=== PATIENT | male | born 1945 | race Two or more races ===

== ENCOUNTER 2017-06-20 07:53 | Day surgery (SDC) | payer OTHER ==
[~2017-06-20] VITALS: Ht 167.6 cm; Wt 70.1 kg
[2017-06-20 06:00] VITALS: PULSE 75
[2017-06-20] MEDS: NS 1000 ML IV SCH (08:45)
[2017-06-20] MEDS ORDERED: ceFAZolin 2 GM PREMIX 50 ML IV SCH (08:45)
[2017-06-20] MEDS ORDERED: CHLORHEXIDINE GLUCONATE 2 % 1 PACK (2 CLOTHS) TOPICAL SCH (08:45)
[2017-06-20] MEDS ORDERED: MUPIROCIN 2% OINT 1 APPLIC/GM SYR NASAL SCH (08:45)
[2017-06-20] MEDS ORDERED: LORazepam 1 MG TAB SL SCH (08:45)
[2017-06-20] MEDS ORDERED: POVIDONE IODINE 5% (ANTISEPSIS KIT) 4 APPLICATIONS EACH NARE SCH (08:45)
[2017-06-20] MEDS ORDERED: INSULIN HUMAN REGULAR 1,000 UNITS/10 ML VIAL SQ PRN (09:00)
[2017-06-20] MEDS ORDERED: SODIUM CHLORID 0.9% 500 ML IV PRN (09:00)
[2017-06-20] MEDS ORDERED: CHLORHEXIDINE GLUCONATE 2 % 1 PACK (2 CLOTHS) TOPICAL PRN (09:00)
[2017-06-20] MEDS ORDERED: METOPROLOL TARTRATE 25 MG TAB PO PRN (09:00)
[2017-06-20] MEDS ORDERED: POVIDONE IODINE 5% (ANTISEPSIS KIT) 4 APPLICATIONS EACH NARE PRN (09:00)
[2017-06-20] MEDS ORDERED: LACTATED RINGER'S 1000 ML IV PRN (09:00)
[2017-06-20 09:22] VITALS: BP 123/69; PULSE 56; RESP 18; TEMP 98; O2SAT 98
[2017-06-20 09:25] LABS: AUTOMATED NEUTROPHIL # 4.2 TH/MM3 (1.8-7.7); BASOPHIL % 0.6 % (0.0-2.0); EOSINOPHIL # 0.1 TH/MM3 (0-0.4); EOSINOPHIL % 1.8 % (0.0-4.0); HEMATOCRIT 39.1 % (39.0-51.0); HEMOGLOBIN 13.6 GM/DL (13.0-17.0); LYMPH % 13.6 % (9.0-44.0); LYMPHOCYTE # 0.8 TH/MM3 (1.0-4.8); MEAN CELL VOLUME 93.2 FL (80.0-100.0); MEAN CORPUSCULAR HEMOGLOBIN 32.4 PG (27.0-34.0); MEAN CORPUSCULAR HGB CONC 34.8 % (32.0-36.0); MEAN PLATELET VOLUME 7.1 FL (7.0-11.0); MONO % 9.2 % (0.0-8.0); MONOCYTE # 0.5 TH/MM3 (0-0.9); NEUT % 74.8 % (16.0-70.0); PLATELET COUNT 232 TH/MM3 (150-450); RED BLOOD COUNT 4.19 MIL/MM3 (4.50-5.90); RED CELL DISTRIBUTION WIDTH 16.1 % (11.6-17.2); WHITE BLOOD COUNT 5.7 TH/MM3 (4.0-11.0)
[2017-06-20] MEDS ORDERED: KLOR10TA6 PO (09:25)
[2017-06-20] MEDS ORDERED: METO50TA PO (09:25)
[2017-06-20] MEDS ORDERED: FURO40TA PO (09:25)
[2017-06-20] MEDS ORDERED: PLAV75TA29 PO (09:25)
[2017-06-20] MEDS ORDERED: AMIO200T PO (09:25)
[2017-06-20 09:33] LABS: INTERNATIONAL NORMALIZED RATIO 1.1 RATIO; PROTHROMBIN TIME - PATIENT 10.9 SEC (9.8-11.6)
[2017-06-20 09:39] LABS: BICARBONATE 31.3 MEQ/L (21.0-32.0); CALCIUM 8.7 MG/DL (8.5-10.1); CREATININE 1.33 MG/DL (0.60-1.30)
[2017-06-20] MEDS ORDERED: MIDAZOLAM HCL 2 MG/2 ML VIAL ONE (11:03)
[2017-06-20] MEDS ORDERED: PROPOFOL 200 MG/20 ML AMP IV ONE (12:00)
[2017-06-20] MEDS ORDERED: ePHEDrine/NS 25 MG/5 ML SYRINGE IV ONE (12:00)
[2017-06-20] MEDS ORDERED: LIDOCAINE HCL 1% PF 5 ML SYRINGE OTHER ONE (12:00)
[2017-06-20] MEDS ORDERED: PHENYLEPH/NS 1000 MCG/10 ML SYR IV ONE (12:00)
--- NOTE | 2017-06-20 12:06 | CATHPROC ---
Patient Name: MISAEL WYNNE Study #: [id number] Initial MD: José Luis Terrazas Date of : 1945 Study Date: 06/20/2017 Cardiac Catheterization Report 06/20/2017 12:05:56 PM Financial #: [id number] 1 of 6 Patient Name: MISAEL WYNNE Study #: [id number] Initial MD: José Luis Terrazas Date of : 1945 Study Date: 06/20/2017 Entire Case Report Patient Information Patient Name MISAEL WYNNE Date of 1945 Age 72 years Financial # [id number] Gender M AlternateID Lab Number 2 Room Number DC07 Height (in) 67.0 Height (cm) 170.2 BSA 1.81 Weight (lbs) 154.2 Weight (kg) 70.1 Patient Address/Phone Number Home Address [facility] Home Phone Number [phone] [facility] [address] Study Information Study Number Admission Scheduled Start Study Start [id number] Jun 20 2017 7:53AM 06/20/2017 Jun 20 2017 11:00AM [place] [facility] Electrophysiology Study Admit Source Facility Department Other [facility] - Polymer Specialist Physician and Clinical Staff Initial José Luis Quan Sample Box Maker Danni Avilez,HEAVY EQUIPMENT FIELD MECHANIC TECH2 Other Anesthesia, CODING ASSISTANT Recorder Sukhi Batista,RN Recorder Valerie Whittaker,HOLGER Scrub Cassandra Soria,RT(R) TECH2 Procedures Performed Procedure Ablation Procedure Cardioversion 06/20/2017 12:05:56 PM Financial #: [id number] 2 of 6 Patient Name: MISAEL WYNNE Study #: [id number] Initial MD: José Luis Terrazas Date of : 1945 Study Date: 06/20/2017 Equipment Time Concrete Floor Installer Description Size Mfg Part Number Used/Scraped [id number] 11:04 Net Transmit & Receive INDUSTRIES PACK, CCL CUSTOM * Used *[id number] 11:04 Net Transmit & Receive PACER BROWN, LIMB * 2530 *[id number] Used [id number] 11:04 [employer] BLANKET,WARM AIR CCL * Used *[id number] 104793 11:04 [employer] MEDICAL CATHETER, JSN, QUAD FR 5 Used *[id number] 663890 11:04 [employer] MEDICAL CATHETER, JSN, QUAD FR 5 Used *[id number] 267028 11:04 [employer] MEDICAL CATHETER, JSN, QUAD FR 5 Used *[id number] 830239 11:04 [employer] MEDICAL CATHETER, JSN, QUAD FR 5 Used *[id number] 141596 11:04 [employer] MEDICAL SHEATH, EPS, FR5 FAST CATH FR 5 Used *[id number] 648460 11:04 [employer] MEDICAL SHEATH, EPS, FR5 FAST CATH FR 5 Used *[id number] 543282 11:04 [employer] MEDICAL SHEATH, EPS, FR5 FAST CATH FR 5 Used *[id number] 263884 11:04 [employer] MEDICAL SHEATH, EPS, FR6 FAST CATH FR 6 Used *[id number] Insurance Information Insurance Payor Private Health Insurance Third Green Party Third Green Party Number [facility] History: Allergies Allergy Reaction No Known Allergies History: Risk Factors Hypertension Dyslipidemia Previous Heart Failure Yes Yes Yes Prior CABG Yes Cerebrovascular Disease Yes Labs Hgb (g/dl) Hct (%) RBC (MIL/MM3) WBC (l/cumm) Platelets (thousands) 11.60-17.00 35.00-51.00 4.00-5.90 4.00-11.00 150.00-450.00 13.0 39 4.2 5.7 232 06/20/2017 12:05:56 PM Financial #: [id number] 3 of 6 Patient Name: MISAEL WYNNE Study #: [id number] Initial MD: José Luis Terrazas Date of : 1945 Study Date: 06/20/2017 Glucose (mg/dl) BUN (mg/dl) Creatinine (mg/dl) BUN:Creatinine (1:x) 74.00-106.00 7.00-18.00 0.50-1.30 10.00-20.00 110 12 1.3 9.2 Na (meq/l) K (meq/l) 136.00-145.00 3.50-5.10 130 4.4 INR (PTT:PT) 0.90-1.10 1.1 Medication Medication Total Dose (Bolus/Oral) Medication Total Dosage/Unit 1% XYLOCAINE 20 mL Medications (Bolus/Oral) Medication Time Given Dosage/Unit Administered By Reason 1% XYLOCAINE 06/20/2017 11:52:26 AM 20 mL Nini José Luis 20 mL 1% XYLOCAINE given in lab by José Luis Terrazas in Right Groin via Subcutaneous. Chronological Log Time Study Chronological Log 11:37:07 Patient arrived via Bed. 11:37:09 Patient Name, D.O.B, / Armband Verified By R.N. 11:37:16 Consent signed by the physician and the patient and verified by the Polymer Specialist staff. 11:37:21 Anesthesia at bedside. Assumes care of patient. See flow sheet for meds and vitals. Immanuel 11:37:48 Patient has been NPO for More than 6Hrs. 11:37:51 Skin Breakdown-none per patient 11:38:00 Patient Warmer Placed on the Table. 11:38:03 Disposable Defibrillator Pads Placed On Patient. 11:38:06 Jamison Prominences Protected 11:38:12 A # 20 IV was noted in the Antecubital (left). Grade = 0 0.9ns kvo 11:38:24 A # 20 IV was noted in the Antecubital (right). Grade = 0 0.9ns kvo 11:38:32 History and physical on the chart or being dictated. 11:38:40 Table restraints applied according to hospital policy 06/20/2017 12:05:56 PM Financial #: [id number] 4 of 6 Patient Name: MISAEL WYNNE Study #: [id number] Initial MD: José Luis Terrazas Date of : 1945 Study Date: 06/20/2017 11:38:52 Bilateral groins prepped with 2% chlorhexidine, and draped after a 3 minute waiting time. 11:42:35 MD arrived. 11:48:18 Reference ECG taken Time Out. Correct patient, procedure, procedure equipment, site and side verified with physici an present. Time 11:52:00 concurred by MD, individual staff and CODING ASSISTANT. Time Out #2 - Consents verified, patient in correct position, all results are labled and displ ayed, safety precautions 11:52:12 taken, antibiotics administered. Time out concurred by MD, individual staff and CODING ASSISTANT in proced ure 11:52:24 Case Start 11:52:26 20 mL 1% XYLOCAINE given in lab by José Luis Terrazas in Right Groin via Subcutaneous. 11:52:39 Vascular access was obtained in the Fem Vein (right). 11:52:45 Vascular access was obtained in the Fem Vein (right). 11:52:53 Vascular access was obtained in the Fem Vein (right). 11:52:59 Vascular access was obtained in the Fem Vein (right). 11:53:08 A SHEATH, EPS, FR5 FAST CATH FR 5 was advanced into the Fem Vein (right) using the Modifie d Seldinger technique. 11:53:17 A SHEATH, EPS, FR5 FAST CATH FR 5 was advanced into the Fem Vein (right) using the Modifie d Seldinger technique. 11:53:25 A SHEATH, EPS, FR5 FAST CATH FR 5 was advanced into the Fem Vein (right) using the Modifie d Seldinger technique. 11:53:29 A SHEATH, EPS, FR6 FAST CATH FR 6 was advanced into the Fem Vein (right) using the Modifie d Seldinger technique. A CATHETER, JSN, QUAD FR 5 was advanced vis Fem Vein (right) and placed in the CS. Placement w as visually 11:54:51 confirmed under fluoroscopy. A CATHETER, JSN, QUAD FR 5 was advanced vis Fem Vein (right) and placed in the HIS. Placement was visually 11:55:23 confirmed under fluoroscopy. A CATHETER, JSN, QUAD FR 5 was advanced vis Fem Vein (right) and placed in the RVA. Placement was visually 11:55:37 confirmed under fluoroscopy. A CATHETER, JSN, QUAD FR 5 was advanced vis Fem Vein (right) and placed in the HRA. Placement was visually 11:55:46 confirmed under fluoroscopy. 11:58:06 EPS in progress. 12:03:25 ECG rhythm of VT noted. Patient cardioverted at 200 joules. Success 12:04:34 Ablation procedure performed: ~ABLATION TYPE~. none 12:04:42 EP Procedure was performed. eps 12:05:09 NOTE: This patient is undergoing an additional procedure while still in the Cardiac Cath L ab. End Study - Contrast Media Used In Study Contrast Total Opened (mL) Total Used (mL) Total Wasted (mL) Unspecified 0 0 0 End Study - Maximum Contrast Load Max Contrast Load (mL) 269.6 06/20/2017 12:05:56 PM Financial #: [id number] 5 of 6 Patient Name: MISAEL WYNNE Study #: [id number] Initial MD: José Luis Terrazas Date of : 1945 Study Date: 06/20/2017 End Study - Radiation Exposure Fluoro Time (minutes) 0.7 End Study - Patient Disposition Complications Transferred To Interventional Outcome No Polymer Specialist Holding successful 06/20/2017 12:05:56 PM Financial #: [id number]
[2017-06-20] MEDS ORDERED: VANCOMYCIN 500 MG VIAL ONE (12:13)
[2017-06-20] MEDS ORDERED: LIDOCAINE HCL 2% 50 ML VIAL ONE (12:13)
[2017-06-20] MEDS ORDERED: LIDOCAINE HCL 1% 50 ML VIAL INFIL PRN (13:15)
[2017-06-20] MEDS ORDERED: SODIUM CHLOR 0.9% 250 ML INJ 250 ML IV PRN (13:15)
[2017-06-20] MEDS ORDERED: SODIUM CHLORIDE 0.9% FLUSH 10 ML FLUSH IV FLUSH PRN (13:15)
[2017-06-20] MEDS ORDERED: ONDANSETRON HCL 4 MG/2 ML VIAL IV PUSH PRN (13:15)
[2017-06-20] MEDS ORDERED: LORazepam 2 MG/ML VIAL IV PUSH PRN (13:15)
[2017-06-20] MEDS ORDERED: ATROPINE SULFATE 1 MG/ML VIAL IV PUSH PRN (13:15)
[2017-06-20] MEDS ORDERED: oxyCODONE/ACETAMINOPHEN 5 MG/325 MG TAB PO PRN (13:15)
--- NOTE | 2017-06-20 13:55 | CATHPROC ---
Patient Name: MISAEL WYNNE Study #: [id number] Initial MD: José Luis Terrazas Date of : 1945 Study Date: 06/20/2017 Cardiac Catheterization Report 06/20/2017 2:19:26 PM Financial #: [id number] 1 of 7 Patient Name: MISAEL WYNNE Study #: [id number] Initial MD: José Luis Terrazas Date of : 1945 Study Date: 06/20/2017 Entire Case Report Patient Information Patient Name MISAEL WYNNE Date of 1945 Age 72 years Financial # [id number] Gender M AlternateID Lab Number 2 Room Number DC07 Height (in) 67.0 Height (cm) 170.2 BSA 1.81 Weight (lbs) 154.2 Weight (kg) 70.1 Patient Address/Phone Number Home Address [facility] Home Phone Number [phone] [facility] [address] Study Information Study Number Admission Scheduled Start Study Start [id number] Jun 20 2017 7:53AM 06/20/2017 Jun 20 2017 12:06PM [place] [facility] Cardiac Pacer/ICD Admit Source Facility Department Other [facility] - Glass Driller Physician and Clinical Staff Initial José Luis Quan Manufacturing Design Engineer Cassandra Soria,RT(R) TECH2 Other Anesthesia, REMOTELY OPERATED VEHICLE Recorder Valerie Whittaker,HOLGER Scrub Danni Avilez,PREFORMING MACHINE OPERATOR TECH2 Procedures Performed Procedure Location (Site) Vessel Name Lead Insertion Venogram Coronary Sinus Other Venogram Subclav. Vein (Lft Subclavian Vein Wire insertion Subclav. Vein (Lft Subclavian Vein 06/20/2017 2:19:26 PM Financial #: [id number] 2 of 7 Patient Name: MISAEL WYNNE Study #: [id number] Initial MD: José Luis Terrazas Date of : 1945 Study Date: 06/20/2017 Equipment Time Pet Counselor Description Size Mfg Part Number Used/Scraped [id number] 12:54 [employer] WIRE, ASAHI PROWATER 180CM 180CM Used *[id number] 13:12 BIOTRONIK DEFIBRILLATOR, ILIVIA 7 HF-T QP [id number] Used 12:37 BIOTRONIK LEAD, PLEXA PRO-MRI SD 65 [id number] Used 12:44 BIOTRONIK LEAD, SOLIA 60 53 PRO MRI * [id number] Used 13:16 MERIT MEDICAL PACER SAFE SHEATH, FR7, 13CM FR 7 CLS-1007 Used 12:40 MER[employer] MEDICAL PACER SAFE SHEATH, FR8, 13CM FR 8 CLS-1008 Used 13:17 MERIT MEDICAL PACER SAFE SHEATH, FR9, 13CM FR 9 CLS-1009 Used 12:23 Needle Sponge Count 2 22 Used 12:23 Needle Sponge Count 20 200 Used 12:23 Needle Sponge Count 6 6 Used 12:35 NYCOMED OMNIPAQUE, 300 MG, 50ML 50ML [id number] Used [id number] 13:00 [employer] MEDICAL LIVEWIRE, QUAD, MED SWEEP FR 6 Used *[id number] LEAD, ATTAIN PERFORMA 13:01 VITATRON MEDTRONIC 88CM 4398-88CM Used STRAIGHT, 88CM Equipment Model, Serial, Lot Number and Expiration Data Description Model Number Serial Number Lot Number Expiration Date DEFIBRILLATOR, ILIVIA 7 HF-T QP [id number] 10-13-2018 LEAD, ATTAIN PERFORMA 4398 [id number] 05-12-2019 STRAIGHT, 88CM LEAD, PLEXA PRO-MRI SD [id number] 02-12-2019 LEAD, SOLIA 60 53 PRO MRI [id number] 02-12-2019 Insurance Information Insurance Payor Private Health Insurance Third Republican Third Republican Number [facility] History: Allergies Allergy Reaction No Known Allergies Medication 06/20/2017 2:19:26 PM Financial #: [id number] 3 of 7 Patient Name: MISAEL WYNNE Study #: [id number] Initial MD: José Luis Terrazas Date of : 1945 Study Date: 8 Medication Total Dose (Bolus/Oral) Medication Total Dosage/Unit 2% XYLOCAINE 50 mL Medications (Bolus/Oral) Medication Time Given Dosage/Unit Administered By Reason 2% XYLOCAINE 06/20/2017 12:28:15 PM 50 mL José Luis Terrazas 50 mL 2% XYLOCAINE given in lab by José Luis Terrazas in Left shoulder via Subcutaneous. Medication (Drip) Medication Time Given Dosage/Unit Concentration/Unit Diluent (ml) Solution ANCEF 06/20/2017 12:05:44 PM 1 g 1 g ANCEF given in lab by Anesthesia, REMOTELY OPERATED VEHICLE via Peripheral IV. Ordered by Hanscy. Nini Reason: As pe r physicians verbal order. VANCOMYCIN DRIP 06/20/2017 12:05:07 PM 1 g 1 g VANCOMYCIN DRIP given in lab by Anesthesia, REMOTELY OPERATED VEHICLE via Peripheral IV. Ordered by José Luis Terrazas. Selena son: As per physicians verbal order. 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/59 0 Edema Present Skin color Skin None Normal Warm Dry Circulatory - Right Pulses Radial 3 Scale (0,1,2,3,4,d) Circulatory - Left Pulses Radial 3 Scale (0,1,2,3,4,d) Circulatory - Lower Extremities Color Lower Right Color Lower Left Normal Normal Neurological State Oriented to time-place- Alert Moves all extremities person Respiration - General Respiration Rate SpO2 (%) O2 (lpm) (B/min) 16 100 4 06/20/2017 2:19:26 PM Financial #: [id number] 4 of 7 Patient Name: MISAEL WYNNE Study #: [id number] Initial MD: José Luis Terrazas Date of : 1945 Study Date: 06/20/2017 Chronological Log Time Study Chronological Log 12:04:45 Catheter(s), except CS, were removed without difficulty. 12:05:00 NOTE: This patient is undergoing an additional procedure while still in the Cardiac Cath La b. 12:05:00 Anesthesia remains at bedside. Assuming care of patient. 1 g VANCOMYCIN DRIP given in lab by Anesthesia, REMOTELY OPERATED VEHICLE via Peripheral IV. Ordered by Yeny Terrazas Reason: As per 12:05:07 physicians verbal order. 12:05:30 2% CHLORHEXIDINE GLUCONATE WASH AND NASAL SWIPE DONE PRIOR TO PROCEDURE. 1 g ANCEF given in lab by Anesthesia, REMOTELY OPERATED VEHICLE via Peripheral IV. Ordered by Hanscy. Nini Reason: As per physicians 12:05:44 verbal order. 12:08:02 Bovie ground pad applied to: right thigh 12:11:30 Fitzpatrick sci rep present 12:11:44 Reference ECG taken 12:11:51 2% CHLORHEXIDINE GLUCONATE WASH AND NASAL SWIPE DONE PRIOR TO PROCEDURE. 12:13:49 Upper Chest Prepped Times Two w 3 min wait time prior to draping. First Sponge And Instrument Count Done by Cassandra Soria, RT(R) TECH2. 12:22:45 Hypo's: 6, Sponges: 20, Bovie/scratch: 2 Sutures: 11, Blades: 1, Instruments: 26, Syveck Patches: 0 Time Out. Correct patient, procedure, procedure equipment, site and side verified with physicia n present. Time 12:27:00 concurred by MD, individual staff and REMOTELY OPERATED VEHICLE. Time Out #2 - Consents verified, patient in correct position, all results are labled and displa yed, safety precautions 12:27:20 taken, antibiotics administered. Time out concurred by MD, individual staff and REMOTELY OPERATED VEHICLE in procedu re 12:27:42 Case Start 12:28:15 50 mL 2% XYLOCAINE given in lab by José Luis Terrazas in Left shoulder via Subcutaneous. 12:31:00 Vascular access was obtained in the Subclav. Vein (Lft. 12:34:47 The Subclav. Vein (Lft was manually injected with 20 cc's of contrast. OMNIPAQUE, 300 MG, 5 0ML 50ML used. 12:35:38 Vascular access was obtained in the Subclav. Vein (Lft. 12:35:40 Wire inserted 12:36:04 Vascular access was obtained in the Subclav. Vein (Lft. 12:36:06 Wire inserted 12:37:04 Surgical Incision Made. 12:38:06 A pocket was created at the L Upper Chest. 12:39:34 A SAFE SHEATH, FR8, 13CM FR 8 was advanced into the Subclav. Vein (Lft using the Modified S eldinger technique. 12:40:46 A LEAD, PLEXA PRO-MRI SD 65/18 65 was inserted and positioned in the RV. 12:40:53 Lead placement verified under fluoroscopy 12:41:46 The RV lead impedance and threshold being tested. 12:42:00 The RV lead was sutured to the fascia. 12:43:54 A SAFE SHEATH, FR7, 13CM FR 7 was advanced into the Subclav. Vein (Lft using the Modified S eldinger technique. 12:44:01 A LEAD, SOLIA 60 53 PRO MRI * was inserted and positioned in the RA. 06/20/2017 2:19:26 PM Financial #: [id number] 5 of 7 Patient Name: MISAEL WYNNE Study #: [id number] Initial MD: José Luis Terrazas Date of : 1945 Study Date: 06/20/2017 12:44:19 Lead placement verified under fluoroscopy 12:45:22 The Atrial lead impedance and threshold is being tested. 12:46:00 The Atrial lead was sutured to the fascia. 12:50:53 Vascular access was obtained in the Subclav. Vein (Lft. 12:51:10 A SAFE SHEATH, FR9, 13CM FR 9 was advanced into the Subclav. Vein (Lft using the Modified S eldinger technique. 12:54:06 The Coronary Sinus was manually injected with 10 cc's of contrast. OMNIPAQUE, 300 MG, 50ML 50ML used. A LIVEWIRE, QUAD, MED SWEEP FR 6 was advanced vis Subclav. Vein (Lft and placed in the CS. Plac ement was 12:56:19 visually confirmed under fluoroscopy. 12:56:21 The Coronary Sinus was manually injected with 10 cc's of contrast. OMNIPAQUE, 300 MG, 50ML 50ML used. 12:57:39 A WIRE, ASAHI PROWATER 180CM 180CM was inserted via Subclav. Vein (Lft. 13:01:08 A LEAD, ATTAIN PERFORMA STRAIGHT, 88CM 88CM was inserted and positioned in the CS/LV. 13:01:36 Wire removed 13:02:13 The CS/LV lead impedance and threshold is being tested. 13:03:19 The CS/LV lead was sutured to the fascia. 13:09:37 Pocket flushed with antibiotic solution 13:11:57 A DEFIBRILLATOR, ILIVIA 7 HF-T QP was connected and placed in the pocket. Second Sponge And Instrument Count Done by Cassandra Soria, RT(R) TECH2. 13:13:22 Hypo's: 6, Sponges: 20, Bovie/scratch: 2 Sutures: 11, Blades: 1, Instruments:, Syveck Patches: 13:22:30 The pocket was closed. 13:27:40 DOCU called. Spoke to Denise 13:27:53 Bedside Report will be given. Final Sponge And Instrument Count Done by Cassandra Soria, RT(R) TECH2. 13:28:20 Hypo's: 6, Sponges: 20, Bovie/scratch: 2 Sutures: 11, Blades: 1, Instruments: 26, Syveck Patches: 0 13:30:43 Case End 13:31:30 Steri-strips and a sterile dressing applied to site. Site wnl. 13:31:32 Implant Procedure was performed. 13:31:40 A Bivent ICD Implant . (Dual) 13:34:51 Implantable Device card placed in patient's chart. 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 13:45:33 A sling was placed on the affected arm. 13:50:41 Sterile dressing applied to right groin site. Site wnl. 13:52:00 Patient moved to stretcher 13:52:54 Defibrillator and ground pads removed. Skin intact. 06/20/2017 2:19:26 PM Financial #: [id number] 6 of 7 Patient Name: MISAEL WYNNE Study #: [id number] Initial MD: Jsoé Luis Terrazas Date of : 1945 Study Date: 06/20/2017 End Study - Contrast Media Used In Study Contrast Total Opened (mL) Total Used (mL) Total Wasted (mL) Omnipaque 50 30 20 End Study - Radiation Exposure Fluoro Time (minutes) 8.7 End Study - Patient Disposition Complications Transferred To Interventional Outcome No Telemetry Bed successful 06/20/2017 2:19:26 PM Financial #: [id number] 7 of 7
[2017-06-20] MEDS: ceFAZolin 2 GM PREMIX 50 ML IV SCH ×2 (14:00→21:26)
[2017-06-20] MEDS ORDERED: BACITRACIN OINT 0.9 GM PKT TOP ONE (14:00)
--- NOTE | 2017-06-20 15:28 | RADRPT ---
EXAM DATE/TIME: 06/20/2017 15:04 [place] COMPARISON: No previous studies available for comparison. INDICATIONS : Post icd placement MEDICAL HISTORY : Hypertension. Congestive heart failure. SURGICAL HISTORY : CABG. ENCOUNTER: Initial ACUITY: 1 day PAIN SCORE: 0/10 LOCATION: Bilateral chest FINDINGS: ICD on the left Cardiomegaly previous bypass atrial clip noted. Negative for failure or pneumothor ax. ICONCLUSION: Negative for pneumothorax. Fausto Cruz MD FACR on June 20, 2017 at 15:24 Board Certified Radiologist. This report was verified electronically.
[2017-06-20 17:57] VITALS: BP 130/63; PULSE 66; RESP 20; TEMP 98.8; O2SAT 99
[2017-06-20] MEDS: oxyCODONE/ACETAMINOPHEN 5 MG/325 MG TAB PO PRN ×2 (18:09→22:20)
[2017-06-20] MEDS ORDERED: DO NOT ADM ANY ANTICOAGULANT DRUGS PRN (19:00)
[2017-06-20 19:53] VITALS: BP 168/76; PULSE 68; RESP 17; TEMP 97.7; O2SAT 100
[2017-06-20] MEDS: SODIUM CHLORIDE 0.9% FLUSH 10 ML FLUSH IV FLUSH SCH (21:00)
[2017-06-20] MEDS: METOPROLOL TARTRATE 50 MG TAB PO SCH (21:26)
--- NOTE | 2017-06-20 21:56 | EKG ---
Date Performed: 06/20/2017 Time Performed: 09:25:42 PTAGE: 72 years EKG: Sinus bradycardia. Leftward axis Left bundle branch block Abnormal ECG NO PREVIOUS TRACING DOCTOR: José Luis Terrazas Interpretating Date/Time 06/20/2017 21:54:41
[2017-06-20 22:22] VITALS: BP 138/70; PULSE 60; RESP 16; TEMP 97.8; O2SAT 98
[2017-06-20 23:00] VITALS: PULSE 60; PULSE 64
[2017-06-21] VITALS (14 sets, daily range): BP systolic 135–159; BP diastolic 81–88; PULSE 59–77; RESP 16–20; TEMP 97.8–98.1; O2SAT 99
[2017-06-21] MEDS: ceFAZolin 2 GM PREMIX 50 ML IV SCH (05:05)
[2017-06-21] MEDS: METOPROLOL TARTRATE 50 MG TAB PO SCH (08:44)
[2017-06-21] MEDS: SODIUM CHLORIDE 0.9% FLUSH 10 ML FLUSH IV FLUSH SCH (08:44)
[2017-06-21] MEDS: oxyCODONE/ACETAMINOPHEN 5 MG/325 MG TAB PO PRN (08:44)
[2017-06-21] MEDS: NS 1000 ML IV SCH (08:45)
[2017-06-21] MEDS ORDERED: AMIODARONE 200 MG TAB PO SCH (09:00)
[2017-06-21] MEDS ORDERED: CLOPIDOGREL 75 MG TAB PO SCH (09:00)
[2017-06-21] MEDS ORDERED: FUROSEMIDE 40 MG TAB PO SCH (09:00)
[2017-06-21] MEDS ORDERED: POTASSIUM CHLORIDE 10 MEQ CONTROLLED RELEASE TAB PO SCH (09:00)
--- NOTE | 2017-06-21 14:10 | PD.CARD ---
BIV/ICD Implantation PROCEDURE DATE: Jun 20, 2017 NYHA Classification: Class III (Moderate) Prevention: Secondary BIV/ICD IMPLANT PROCEDURE Biventricular pacer defibrillator implantation. INDICATION FOR PROCEDURE Mr. Orta is a 72-year-old Other male with congestive heart failure, ischemic cardiomyopathy, QRS 160ms who undergo biventricular pacer defibrillator implantation. Post electrophysiology study the patient was kept on the table for device implantation. The risks, the nature and the benefit of the procedure were clearly stated to him. The risks include pneumothorax, cardiac perforation, stroke and even . He understood and agreed to proceed. PROCEDURE As written informed consent was obtained prior to electrophysiology study, the patient was kept on the table where he was prepped and draped in the usual sterile fashion. Conscious sedation was initiated and maintained throughout the procedure by the anesthesiologist. Once sedation was verified, the left infraclavicular area was anesthetized with 2% Xylocaine. Using modified Seldinger technique, the left subclavian vein was cannulated on three occasions and three guidewire were advanced. Then, using an 11 blade scalpel, a 3 cm incision was made over the existing generator. The incision was taken down to the fascial layer using Bovie cautery and blunt dissection. Into the inferomedial direction, a device pocket was dissected. Then the wires were dissected into pocket. A 2-0 Vicryl suture was placed around the wires to prevent back-bleeding. At this point, over the lateral wire, an 8-Qatari dilator and introducer were advanced. As the dilator and wire were removed, an active fixation right ventricular pacing sensing defibrillatory lead was advanced. After adequate pacing and sensing thresholds were obtained, the lead was secured in the pocket using # 2 Ethibond suture. Then, over the lateral wire, a 7-Qatari dilator and introducer was advanced. As the dilator and wire were removed, an active fixation right atrial pacing and sensing lead was advanced. After adequate pacing and sensing thresholds obtained, the lead was secured into the pocket using a # 2 Ethibond suture. Then, over the remaining wire, a 9-Qatari dilator and introducer were advanced. As the dilator and wire were removed, a CS cannulation sheath was advanced. Through the sheath a quadripolar steerable catheter was advanced. After multiple manipulations the coronary sinus was cannulated, and CS venography showed an adequate lateral branch. Using a P[place]ater wire the lateral branch was cannulated and the lead was advanced over the wire. After adequate pacing and sensing thresholds were obtained, the peel-away introducer was removed and the cutter introducer was removed, and the lead was secured in the pocket using # 2 Ethibond suture. At that point, the pocket was copiously irrigated with antibiotic solution. The leads were connected to the generator and placed into pocket. Because of the patient's general condition and was so unstable during the procedure, I decided not to proceed with device testing. I did proceed with wound closure. The deep fascial layer was approximated using 2-0 Vicryl suture in a continuous fashion. The subcutaneous layer was approximated with 2-0 Vicryl suture in a continuous fashion. The subcuticular layer was approximated with 2-0 Vicryl suture in a continuous fashion. Dermabond adhesive was applied to the wound followed by a sterile pressure dressing. This was a very complex case. The patient was unstable during the procedure, but no complications reported. Blood loss was minimal. IMPLANTED HARDWARE The implanted biventricular pacer defibrillator is a Biotronik model 798531, serial number [id number]. The right atrial pacing and sensing lead is a Biotronik model number 324954, serial number [id number]. The right ventricle pacing sensing defibrillatory is a Biotronik model 068531, serial number [id number]. The left ventricular pacing sensing lead is a Medtronic model 4398-88, serial number [id number]. THRESHOLDS The right atrial pacing threshold in a bipolar mode was 1.0 V @ 0.5 ms. Lead impedance 565. P wave @ 4.6mV. ohms. The right ventricle pacing threshold in the bipolar mode was 0.8 volts at 0.4 milliseconds, lead impedance 10.2 ohms, and shocking impedance 811 ohms. The left ventricular pacing threshold in the bipolar mode was 1.9 volts at 1.0 milliseconds, lead impedance 640 ohms. SETTINGS The device was set in a DDD 60, upper limit 120 beats per minute. LV first by 40 milliseconds. The defibrillatory portion was set for two zones. One zone for ventricular tachycardia between 160 and 240 beats per minute on the monitor ventricular tachycardia. The initial therapy consisted of one burst of ATP, one RAMP, 81%, 10 pulses, 10 millisecond decremental followed by 20. 30 and 40 joules defibrillatory shock. The second zone is for ventricle fibrillation above 240, the first therapy at 30 and all subsequent shocks at 40 joules defibrillatory shock. CONCLUSIONS Successful biventricular pacer defibrillator implantation, that was a complex case. COMMENT AND RECOMMENDATION The patient will be transferred to the telemetry unit. He will be observed and when stable can be discharged home. José Luis Terrazas MD Jun 21, 2017 14:10
--- NOTE | 2017-06-21 14:18 | HHI.PR ---
Subjective Remarks Feeling better Objective Vital Signs Date Time Temp Pulse Resp B/P (MAP) Pulse Ox O2 Delivery O2 Flow Rate FiO2 06/21/17 13:00 60 06/21/17 12:00 60 06/21/17 11:00 97.9 61 20 152/81 (104) 99 06/21/17 11:00 60 06/21/17 10:00 60 06/21/17 09:00 59 06/21/17 08:00 60 06/21/17 07:00 98.1 59 20 159/88 (111) 99 06/21/17 07:00 60 06/21/17 06:00 68 06/21/17 05:02 60 06/21/17 04:43 16 06/21/17 04:18 97.8 60 16 135/83 (100) 99 06/21/17 04:00 59 06/21/17 03:00 77 06/21/17 02:14 60 06/20/17 23:22 17 06/20/17 23:00 64 06/20/17 23:00 60 06/20/17 22:22 97.8 60 16 138/70 (92) 98 06/20/17 19:53 97.7 68 17 168/76 (106) 100 06/20/17 17:57 98.8 66 20 130/63 (85) 99 06/20/17 14:17 95 Room Air I/O 06/20/17 06/20/17 06/20/17 06/21/17 06/21/17 06/21/17 07:00 15:00 23:00 07:00 15:00 23:00 Intake Total 0 ml 480 ml Output Total 450 ml Balance 0 ml 30 ml Intake Oral 0 ml 480 ml Output Urine Total 450 ml # Voids 3 # Bowel Movements 0 Result Diagram: 06/20/17 0850 06/20/17 0850 Imaging Alert, fully oriented Lungs: ventilated Heart: s1, s2 regular, no gallop Abdomen: soft, no mass Ext: no edema Clean surgical wound Last Impressions Chest X-Ray 06/20/17 0000 Signed Impressions: Service Date/Time: Tuesday, June 20, 2017 15:04 - CONCLUSION: Negative for pneumothorax. Fausto Curz MD FACR Current Medications Medications (Trade) Dose Ordered Sig/Kaur Route Start Time Stop Time Status Last Admin Sodium Chloride 1,000 ml @ 30 mls/hr Q24H IV 06/20/17 08:45 Cefazolin Sodium/ Dextrose 50 ml @ 100 mls/hr PATTERN DRUM MAKER IV 06/20/17 08:45 06/23/17 08:44 (Ativan) 1 mg PATTERN DRUM MAKER SL 06/20/17 08:45 06/23/17 08:44 (Betadine 5% Antisepsis Kit) 2 applic PATTERN DRUM MAKER EACH NARE 06/20/17 08:45 06/23/17 08:44 (Bactroban Nasal 2% Oint) 1 applic PATTERN DRUM MAKER NASAL 06/20/17 08:45 06/23/17 08:44 (Chlorhexidine 2% Cloth) 3 pack PATTERN DRUM MAKER TOPICAL 06/20/17 08:45 06/23/17 08:44 Lactated Ringer's 1,000 ml @ 30 mls/hr Q24H PRN IV 06/20/17 09:00 06/23/17 08:59 Sodium Chloride 500 ml @ 30 mls/hr [id number] PRN IV 06/20/17 09:00 06/23/17 08:59 (Lopressor) 25 mg PATTERN DRUM MAKER PRN PO 06/20/17 09:00 06/23/17 08:59 (Betadine 5% Antisepsis Kit) 1 applic PATTERN DRUM MAKER PRN EACH NARE 06/20/17 09:00 06/23/17 08:59 (Chlorhexidine 2% Cloth) 3 pack PATTERN DRUM MAKER PRN TOPICAL 06/20/17 09:00 06/23/17 08:59 (NovoLIN R INJ) See Protocol Table ... PATTERN DRUM MAKER PRN SQ 06/20/17 09:00 06/23/17 08:59 (Percocet 5-325 Mg) 1 tab Q4H PRN PO 06/20/17 13:15 06/21/17 03:44 (Percocet 5-325 Mg) 2 tab Q4H PRN PO 06/20/17 13:15 06/21/17 08:44 (Atropine Inj) 0.5 mg UNSCH PRN IV PUSH 06/20/17 13:15 (Zofran Inj) 4 mg Q4H PRN IV PUSH 06/20/17 13:15 (NS Flush) 2 ml BID IV FLUSH 06/20/17 21:00 06/21/17 08:44 (NS Flush) 2 ml UNSCH PRN IV FLUSH 06/20/17 13:15 (Cordarone) 200 mg DAILY PO 06/21/17 09:00 06/21/17 08:44 (Plavix) 75 mg DAILY PO 06/21/17 09:00 06/21/17 08:43 (Lasix) 40 mg DAILY PO 06/21/17 09:00 06/21/17 08:43 (Lopressor) 50 mg BID PO 06/20/17 21:00 06/21/17 08:44 (KCl) 10 meq DAILY PO 06/21/17 09:00 06/21/17 08:44 Miscellaneous Information ALL NURSING DEPARTME... UNSCH PRN .XX 06/20/17 19:00 06/21/17 18:59 Assessment and Plan Problem List: (1) Biventricular automatic implantable cardioverter defibrillator in situ ICD Codes: Z95.810 - Presence of automatic (implantable) cardiac defibrillator Plan: Clean surgical wound Device well functioning (2) CHF (congestive heart failure) ICD Codes: I50.9 - Heart failure, unspecified Plan: Doing better Creat decrease Entresto will be added Will be uptitrated as OP José Luis Terrazas MD Jun 21, 2017 14:18
[2017-06-21] MEDS ORDERED: HYDR-3288 PO (14:22)
[2017-06-21] MEDS ORDERED: SACU1TAB PO (14:22)
[2017-06-21] MEDS ORDERED: CEPH-460 PO (14:22)
--- NOTE | 2017-06-21 14:43 | EKG ---
Date Performed: 06/21/2017 Time Performed: 08:01:20 PTAGE: 72 years EKG: A-V sequential pacemaker Pacemaker rhythm - no further analysis Compared to previous [place] the patient continues in a paced rhythm, possibly unipolar Abnormal ECG PREVIOUS TRACING : 06/21/2017 04.05 DOCTOR: Nestor Cordero Interpretating Date/Time 06/21/2017 14:35:58
--- NOTE | 2017-06-21 14:43 | EKG ---
Date Performed: 06/21/2017 Time Performed: 04:05:52 PTAGE: 72 years EKG: A-V sequential pacemaker Pacemaker rhythm - no further analysis Compared to previous [place] the patient is now in a paced rhythm Abnormal ECG PREVIOUS TRACING : 06/20/2017 09.25 DOCTOR: Nestor Cordero Interpretating Date/Time 06/21/2017 14:35:03
--- NOTE | 2017-06-21 16:08 | MA ---
cc: CAMRYN BRO M.D. DATE 06/20/2017 PROCEDURE 1. Electrophysiology study. 2. Biventricular pacer defibrillator insertion. INDICATION FOR PROCEDURE Mr. Richard Lopez is a 72-year-old gentleman with congestive heart failure, coronary artery disease, cardiomyopathy, ejection fraction around 30%, referred for electrophysiology study and biventricular pacer defibrillator insertion. The risks, the nature and the benefit of the procedure were clearly stated to him. The risks include pneumothorax, cardiac perforation, stroke, need for open heart surgery and even . The patient understood and agreed to proceed. DETAILS OF PROCEDURE After written informed consent was obtained, the patient was brought to the EP lab where he was prepped and draped in the usual sterile fashion. Conscious sedation was initiated and maintained throughout the procedure by the anesthesiologist. Once sedation was verified, the right inguinal area was anesthetized with 2% Xylocaine. Using the modified Seldinger technique, the right femoral vein was cannulated on four occasion and four guidewires were advanced. Over the wires three 5 and a 6 Trin[place] were advanced. Then under fluoroscopic guidance through the 5 and 5 Trin[place] Hemaquets, four 5 Trin[place] Chintan curved quadripolar electrophysiology catheters were advanced and positioned on the His, upper right atrium, coronary sinus and right ventricular apex. Basic intervals were measured. They were within normal limits. HV was slightly prolonged. Then atrial pacing protocol was performed. Atrial pacing protocol consisted of incremental atrial pacing as well as programmed stimulation with 110 cycle length and up to one extrastimuli delivered. No tachyarrhythmia was induced. Then ventricular pacing protocol was performed. During ventricular pacing protocol ventricular tachycardia was induced. The patient failed antitachycardia pacing and was rescued by an external 200 joules that converted the patient into sinus rhythm. At that point the procedure was complete. All catheters were removed. The patient is going to be kept on the table and a biventricular pacer defibrillator will be implanted for sudden secondary prevention and resynchronization therapy. No incident report. The patient tolerated the procedure. Blood loss minimal. FINDINGS 1. Electrocardiogram: At baseline the patient was in sinus. Post procedure the electrocardiogram was unchanged. 2. Basic Intervals: Basic cycle length was around 8000 milliseconds. AH was at 76 and HV was around 68 milliseconds. 3. Atrial Pacing Protocol: [place]ke[place] of the node was around 400 milliseconds. ERP was 600, 380 milliseconds. No tachyarrhythmia was induced. 4. Ventricular Pacing Protocol: There was no VA conduction. Ventricular tachycardia was induced. CONCLUSIONS Positive electrophysiology study for ventricular tachyarrhythmia. COMMENT/RECOMMENDATION The patient will be kept on the table. The biventricular pacer defibrillator will be implanted for sudden secondary prevention and resynchronization therapy. Camryn Bro MD HS/BT /2:11 PM /3:07 PM
== END 2017-06-21 14:00 | disposition home or self-care (01) ==
LOC: HDOC 07:53 → HDIC 07:53 → HCPC 18:37 → HDOC 06-21 14:00
PROVIDERS: ATTEND Internal Medicine Interventional Cardiology
DX: I50.9 Heart failure, unspecified (principal); I25.5 Ischemic cardiomyopathy; I47.2 Ventricular tachycardia; I25.10 Atherosclerotic heart disease of native coronary artery without angina pectoris; I10 Essential (primary) hypertension; Z86.73 Personal history of transient ischemic attack (TIA), and cerebral infarction without residual deficits; Z95.1 Presence of aortocoronary bypass graft
CPT/HCPCS: 00530; 33225; 33249; 71045; 80048; 85025; 85610; 85730; 86850; 86900; 86901; 92960; 93005; 93620; C1730; C1769; C1779; C1882; C1895; C1900; J0690; J2250; J2370; J3010; J3370